=== PATIENT | female | born 1975 | race American Indian/Alaskan Native ===

== ENCOUNTER 2018-02-26 07:13 | Day surgery (SDC) | payer MEDICAID ==
[~2018-02-26 07:13] MED LIST: LACTATED RINGERS 1,000 ML IV SCH; VERSED IV NR
[2018-02-26] MEDS ORDERED: DIPRIVAN 10 MG/ML IV ONE (09:00)
[2018-02-26] MEDS ORDERED: XYLOCAINE MPF 2% ONE (09:01)
[2018-02-26] MEDS ORDERED: DILAUDID ONE (09:01)
[2018-02-26] MEDS ORDERED: SUBLIMAZE IV PRN (09:12)
[2018-02-26] MEDS ORDERED: DILAUDID IV PRN (09:12)
[2018-02-26] MEDS ORDERED: ZOFRAN IV PRN (09:12)
--- NOTE | 2018-02-26 09:12 | Anesthesia Consultation ---
Anesthesia Consult and Med Hx - Airway Anesthetic Teeth Evaluation: Poor, Caps ROM Head & Neck: Adequate Mental/Hyoid Distance: Adequate Mallampati Class: Class II Intubation Access Assessment: Good - Pulmonary Exam CTA: Yes - Cardiac Exam Cardiac Exam: RRR - Pre-Operative Health Status ASA Pre-Surgery Classification: ASA3 Proposed Anesthetic Plan: General - Pulmonary Hx Smoking: Yes (former) - Cardiovascular System Hx Hypertension: Yes (Dx 12/2017, not taking any meds) - Central Nervous System Hx Psychiatric Problems: No - Other Systems Hx Alcohol Use: Yes (occas) Hx Cancer: No
[2018-02-26] MEDS ORDERED: NACL BACTERIOSTATIC INFILTRATI ONE (09:21)
--- NOTE | 2018-02-26 09:22 | Short Stay Summary ---
Short Stay Documentation Date of service: 02/26/18 Narrative H&P: Pt is a 42yo BF LMP 02/23/18 presents for surgical evaluation and treatment of an endometrial polyp. A pelvic u/s showed an enlarged uterus 12 x 8.4 x 6.3cm with an endometrial polyp. She is therefore scheduled for a Hysteroscopy with polypectomy. - History Principal diagnosis: Hysteroscopy with polypectomy H&P: obtained from office Past Medical History: hypertension Past Surgical History: (x2), Other (Left elbow cyst removal) Social history: no significant social history, single - Allergies and Medications Current Medications: Allergies No Known Allergies Allergy (Unverified 02/25/18 15:38) Home Medications Medication Instructions Recorded Confirmed Last Taken Type No Known Home Medications [No 02/25/18 02/25/18 Unknown History Reported Home Medications] Active Medications Fentanyl (Sublimaze) 50 mcg IV Q5MIN PRN PRN Reason: Pain , Severe (7-10) Stop: 02/26/18 13:00 Hydromorphone HCl (Dilaudid) 0.5 mg IV Q10MIN PRN PRN Reason: Pain , Severe (7-10) Lactated Ringer's (Lactated Ringers) 1,000 mls @ 100 mls/hr IV DIRECT MAYRA Midazolam HCl (Versed) 2 mg IV PREOP NR Stop: 02/26/18 23:59 Ondansetron HCl (Zofran) 4 mg IV ONCE PRN PRN Reason: Nausea And Vomiting - Physical exam General appearance: no acute distress Integumentary: no rash HEENT: Atraumatic Lungs: Clear to auscultation Breasts: deferred Heart: Regular rate Gastrointestinal: normal Female Genitourinary: deferred Rectal Exam: deferred Extremities: no ischemia Neurological: Normal gait, Normal speech - Brief post op/procedure progress note Date of procedure: 02/26/18 Pre-op diagnosis: Endometrial polyps Post-op diagnosis: same Procedure: 1. Hysteroscopy 2. Polypectomy Anesthesia: MAC Findings: An enlarged uterus with multiple uterine polyps. Normal tubal ostia bilaterally. Surgeon: LISA GREEN Estimated blood loss: minimal Pathology: list (endometrial polyps) Specimen disposition: to lab Condition: stable - Hospital course Hospital course: Unremarkable. - Disposition Condition at discharge: Good Disposition: [id number] TO HOME OR SELFCARE - Discharge Diagnoses (1) Endometrial polyp Status: Resolved Short Stay Discharge Plan Activity: no restrictions Diet: regular Follow up with: CHEYENNE NEWMAN MD [Primary Care Provider] - 7 Days LISA GREEN MD [Staff Physician] - 14 Days Prescriptions: Ibuprofen [Motrin] 800 mg PO Q8HR PRN #30 tablet PRN Reason: Pain, Moderate (4-6)
[2018-02-26 10:00] LABS: Hemoglobin 11.6 gm/dl (10.1-14.3)
[2018-02-26] MEDS ORDERED: ANCEF/STERILE WATER 2 GM/20 ML 2 GM/20 ML SYRINGE IV NR (10:00)
[2018-02-26 10:05] LABS: Hematocrit 37.4 % (30.3-42.9); Mean Corpuscular HGB Conc 32 % (30-34); Mean Corpuscular Hemoglobin 26 pg (28-32); Mean Corpuscular Volume 79 fl (79-97); Platelet Count 376 K/mm3 (140-440); Red Blood Count 4.72 M/mm3 (3.65-5.03); Red Cell Distribution Width 15.7 % (13.2-15.2)
[2018-02-26] MEDS ORDERED: ZOFRAN ONE (10:57)
[2018-02-26] MEDS ORDERED: NACL 0.9% IR ONE (11:16)
--- NOTE | 2018-02-26 11:46 | Operative Report ---
Operative Report Operative Report: Date of procedure: 02/26/2018 Pre-operative diagnosis: Endometrial polyps Post-operative diagnosis: Same Procedure name(s): 1. Hysteroscopy 2. Polypectomy Surgeon: Garcia Ho MD Audiometrist: None Anesthesia: Gen. mask EBL: Minimal Findings: An enlarged uterus with multiple endometrial polyps. Normal tubal ostia bilaterally. Procedure: After the patient was correctly identified, she was prepped and draped in usual sterile fashion and placed in dorsolithotomy position. First the bladder was emptied using a straight catheter. Next the speculum was placed in the vaginal vault and anterior lip of the cervix was grasped using single- tooth tenaculum. The uterus was sounded to 10 cm, and the cervical os was sequentially dilated. The hysteroscope was then introduced into the cervical canal showing multiple endometrial polyps. The tubal ostia were visualized and found to be normal bilaterally. Next the Myosure device was placed through the cervical os, and the endometrial polyps was removed in sweeping fashion. After all the polyps were removed the procedure was considered complete. All instruments are removed from the vagina. The patient tolerated the procedure well and was transferred to recovery room in stable condition.
[2018-02-26 14:13] VITALS: BP 116/85
--- NOTE | 2018-02-26 14:38 | Anesthesia Day of Surgery ---
Anesthesia Day of Surgery - Day of Surgery Patient Examined: Yes Patient H&P Reviewed: Yes Patient is NPO: Yes
--- NOTE | 2018-02-26 14:38 | Post Anesthesia Evaluation ---
- Post Anesthesia Evaluation Patient Participated: Yes Airway Patent: Yes Stable Respiratory Function: Yes Nausea/Vomiting: No Temp > 96.8F: Yes Pain Manageable: Yes Adequeate Hydration: Yes Anesthesia Complications: No
== END 2018-02-26 13:20 | disposition home or self-care (01) ==
LOC: OR 07:13
PROVIDERS: ATTEND Obstetrics & Gynecology
DX: N84.0 Polyp of corpus uteri (principal); I10 Essential (primary) hypertension; E66.01 Morbid (severe) obesity due to excess calories; Z87.891 Personal history of nicotine dependence; Z90.710 Acquired absence of both cervix and uterus; Z68.41 Body mass index [BMI] 40.0-44.9, adult
CPT/HCPCS: 36415; 58558; 81025; 85027; 88305; A4217; C1782; J0690; J1170; J2250; J2405; J2704; J7120